=== PATIENT | male | born 1955 ===

== ENCOUNTER 2019-01-01 05:43 | Inpatient (IN) | payer OTHER ==
[2019-01-01] VITALS (14 sets, daily range): BP systolic 96–158; BP diastolic 57–102
[~2019-01-01] VITALS: Ht 172.7 cm; Wt 75.3 kg
[~2019-01-01 05:43] MED LIST: IBUPROFEN600 MG ORAL
[2019-01-01] MEDS ORDERED: LR 1000ml 1,000 ML IVLG SCH (06:34)
--- NOTE | 2019-01-01 06:35 | Anethesia Preoperative Eval ---
Anesthesia Pre-op PMH/ROS General Date of Evaluation: Jan 01, 2019 Time of Evaluation: 06:54 Anesthesiologist: Yesica ASA Score: ASA 2 Mallampati Score Class I : Soft palate, uvula, fauces, pillars visible Class II: Soft palate, uvula, fauces visible Class III: Soft palate, base of uvula visible Class IV: Only hard plate visible Mallampati Classification: Class II Surgeon: Adrian Diagnosis: Neck Pain Surgical Procedure: ACDF C4-5, C5-6, C6-7 Anesthesia History: none Family History: no anesthesia problems Allergies: Coded Allergies: No Known Allergies (Unverified , 01/01/19) Medications: see eMAR Patient NPO?: Yes Past Medical History Cardiovascular: Reports: HTN Anesthesia Pre-op Phys. Exam Physician Exam Last Vital Signs Date Time Temp Pulse Resp B/P (MAP) Pulse Ox O2 Delivery O2 Flow Rate FiO2 01/01/19 06:33 Room Air 01/01/19 06:16 97.5 56 18 140/93 (109) 100 Constitutional: NAD Neurologic: CN 2-12 intact Cardiovascular: RRR Respiratory: CTA Gastrointestinal: S/NT/ND Airway Exam Mallampati Score: Class II MO: full ROM: limited Teeth: missing, intact Anesthesia Pre-op A/P Risk Assessment & Plan Assessment: ASA 2 Plan: GA, SED, GlideScope Go Status Change Before Surgery: No Pre-Antibiotics Dru Grams Ancef IV Given Within 1 Hr of Incision: Yes Time Given: 07:21 Alber Robert MD Jan 01, 2019 06:35
[2019-01-01] MEDS ORDERED: Rocuronium Bromide 50mg/5ml Inj IV ONE (06:39)
[2019-01-01] MEDS ORDERED: oxyCODONE HCL/Acetaminophen 5/325mg ORAL PRN (06:45)
[2019-01-01] MEDS ORDERED: HYDROcodone/Acetamin 5/325 tab ORAL PRN ×2 (06:45→07:15)
[2019-01-01] MEDS ORDERED: Meperidine 50mg/ml Inj(FOR RIGORS ONLY) IVP PRN (06:45)
[2019-01-01] MEDS ORDERED: DiphenhydrAMINE 50mg/ml Inj IVP PRN (06:45)
[2019-01-01] MEDS ORDERED: fentaNYL 100 mcg/2 mL IV PRN (06:45)
[2019-01-01] MEDS ORDERED: Atropine Sulfate 0.4mg/ml inj IVP PRN (06:45)
[2019-01-01] MEDS ORDERED: Midazolam 2mg/2ml Inj IVP PRN (06:45)
[2019-01-01] MEDS ORDERED: Labetalol 5mg/ml 20ml vial IV PRN (06:45)
[2019-01-01] MEDS ORDERED: LORazepam Inj 2mg/ml 1ml IV PRN (06:45)
[2019-01-01] MEDS ORDERED: Hydromorphone 0.5mg/0.5ml inj IVP PRN (06:45)
[2019-01-01] MEDS ORDERED: Acetaminophen (Non formulary) 100 ML IV ONE (06:45)
[2019-01-01] MEDS ORDERED: Ketorolac 30mg Inj IV PRN ×2 (06:45)
[2019-01-01] MEDS ORDERED: HYDROcodone/Acetamin 7.5/325 tab ORAL PRN ×3 (06:45→07:15)
[2019-01-01] MEDS ORDERED: Metoclopramide 10mg/2ml Inj IVP PRN (06:45)
[2019-01-01] MEDS ORDERED: Lidocaine 1% Plain 30 ml INJ ONE ×2 (06:49→08:31)
[2019-01-01] MEDS ORDERED: Sodium Chloride 10ml vial INJ ONE (06:50)
[2019-01-01] MEDS ORDERED: Dexamethasone 4mg/ml vial ONE (06:50)
[2019-01-01] MEDS ORDERED: Lidocaine 1% MPF 10mg/ml 5ml ONE (06:50)
[2019-01-01] MEDS ORDERED: fentaNYL 100 mcg/2 mL IV ONE ×2 (06:51→08:19)
[2019-01-01] MEDS ORDERED: Thrombin 5000 units TOPIC ONE (06:55)
[2019-01-01] MEDS ORDERED: Bacitracin 50000 Units Vial ONE (06:56)
[2019-01-01] MEDS ORDERED: Gelfoam Size TOPIC ONE (06:56)
[2019-01-01] MEDS ORDERED: NS Irrig 1000ml ONE (06:59)
[2019-01-01] MEDS ORDERED: Sterile Water Irrig 1000ml IRRIG ONE (06:59)
[2019-01-01] MEDS ORDERED: ceFAZolin sod 2 GM in D5W 110 ML IVPB ONE (07:00)
[2019-01-01] MEDS ORDERED: Propofol 1,000mg/ 100ml btl IV ONE (07:00)
--- NOTE | 2019-01-01 07:07 | Pre-Procedure Note/Attestation ---
Pre-Procedure Note/Attestation Complete Prior to Procedure Planned Procedure: not applicable Procedure Narrative: Anterior cervical discectomy and fusion of cervical 45,56,67 Indications for Procedure Pre-Operative Diagnosis: Herniation of C45,56,67 Attestation I attest that I discussed the nature of the procedure; its benefits; risks and complications; and alternatives (and the risks and benefits of such alternatives ), prior to the procedure, with the patient (or the patient's legal technical services representative). I attest that, if there was a reasonable possibility of needing a blood transfusion, the patient (or the patient's legal technical services representative) was given the [facility] standardized written summary, pursuant to the [place] Blood Safety Act ([place] Health and Safety Code # 1645, as amended). I attest that I re-evaluated the patient just prior to the surgery and that there has been no change in the patient's H&P, except as documented below: Gene Campbell MD Jan 01, 2019 07:07
--- NOTE | 2019-01-01 07:09 | Brief Operative Note ---
Immediate Post Operative Note Operative Note Chief Complaint: neck pain and radiculopathy Pre-op Diagnosis: Herniation of C45,56,67 Procedure: Anterior cervical discectomy and fusion of cervical 45,56,67 Post-op Diagnosis: same as pre-op Findings: consistent w/pre-op dx studies Surgeon: Adrian Prime Broker: Shaniqua Anesthesiologist: Yesica Anesthesia: general Specimen: none Complications: none Condition: stable Fluids: IVF Estimated Blood Loss: minimal Drains: none Implant(s) used?: Yes - nuvasive interlock c sz6x3, screws 13mmx9 Gene Campbell MD Jan 01, 2019 07:09
[2019-01-01] MEDS ORDERED: Morphine Sulfate 4mg/ml Inj (IV USE ONLY) IV PRN ×2 (07:15)
[2019-01-01] MEDS ORDERED: HYDROmorphone 1mg/ml Carpuject IVP PRN (07:15)
[2019-01-01] MEDS ORDERED: Milk of Magnesia 30ml Ud ORAL PRN (07:15)
[2019-01-01] MEDS ORDERED: Morphine Sulfate 2mg/ml Inj(IV/IM USE ONLY) IV PRN (07:15)
[2019-01-01] MEDS ORDERED: Chloraseptic Spray 20mL Bottle ORAL PRN (07:15)
[2019-01-01] MEDS ORDERED: Naloxone 0.4mg/ml Inj IVP PRN (07:15)
--- NOTE | 2019-01-01 07:55 | Immediate Post-Op Evaluation ---
Immediate Post-Op Evalulation Immediate Post-Op Evalulation Procedure: ACDF C4-5, C5-6, C6-7 Date of Evaluation: Jan 01, 2019 Time of Evaluation: 11:12 IV Fluids: 900 LR Blood Products: 0 Estimated Blood Loss: 75 Urinary Output: 200 Blood Pressure Systolic: 144 Blood Pressure Diastolic: 91 Pulse Rate: 90 Respiratory Rate: 16 O2 Sat by Pulse Oximetry: 99 Temperature (Fahrenheit): 97.4 Pain Score (1-10): 2 Nausea: No Vomiting: No Complications 0 Patient Status: awake, reacts, patent, extubated, none Hydration Status: adequate Dru grams Ancef IV Given Within 1 Hr of Incision: Yes Time Given: 07:21 Alber Robert MD Jan 01, 2019 07:55
--- NOTE | 2019-01-01 08:51 | General Progress Note ---
Assessment/Plan Assessment/Plan: neck pain and radiculopathy Herniation of C45,56,67 Anterior cervical discectomy and fusion of cervical 45,56,67 PLAN 1. incentive spirometry 2.SCD 3. PT evaluation and therapy 4. Hydration 5. Pain management 6. discharge once stable with outpatient follow up Subjective Allergies: Coded Allergies: No Known Allergies (Unverified , 01/01/19) Subjective asked to follow up post op Objective Last 24 Hour Vital Signs Date Time Temp Pulse Resp B/P (MAP) Pulse Ox O2 Delivery O2 Flow Rate FiO2 01/01/19 06:33 Room Air 01/01/19 06:16 97.5 56 18 140/93 (109) 100 Height (Feet): 5 Height (Inches): 8.00 Weight (Pounds): 166 Alex Arndt MD Jan 01, 2019 08:51
[2019-01-01] MEDS ORDERED: Glycopyrrolate 0.2mg/ml 1ml Vial ONE (10:24)
--- NOTE | 2019-01-01 11:54 | Diagnostic Imaging Report ---
Indication: Intraoperative imaging COMPARISON: None FINDINGS: 5 fluoroscopic images were obtained intraoperatively. Fluoroscopic time 25.6 seconds Intraoperative images demonstrating localization of the cervical spine followed by multilevel anterior cervical discectomy and fusion at C4-5 C5-6 C6-7. IMPRESSION: Intraoperative imaging as described above
--- NOTE | 2019-01-01 12:50 | NUR ---
NURSE NOTES: Received report from NITA Jones. Patient drowsy, alert x2 to name and time. On nasal cannula 3L/min. No signs of distress or labored breathing. IV intact , patent, and infusing IV fluids from OR. Patient's son at the bedside. Belongings checked and accounted for, including android smartphone. Side rails up x2. Surgical site dry and intact, covered with dermabound.
--- NOTE | 2019-01-01 13:30 | NUR ---
NURSE NOTES: Gave prescription for home medications to patient's son, Rusty Schofield. Patient's son signed copy of prescription. Charge nurse aware.
[2019-01-01] MEDS: NS w/KCl 20mEq 1000ml 1,000 ML IV SCH ×2 (14:23→23:50)
[2019-01-01] MEDS: Dexamethasone 4mg/ml vial IVP SCH ×3 (14:23→23:52)
--- NOTE | 2019-01-01 16:27 | NUR ---
CASE MANAGEMENT: INITIAL REVIEW 63 YR OLD MALE HERE FOR ELECTIVE SURGERY SI: NECK PAIN AND RADICULOPATHY 97.5 56 18 140/93 100% ON RA IS: SURGERY TODAY FOR HERNIATION OF C 45, 56, 67 DCP: DISCHARGE HOME WHEN MEDICALLY CLEARED
[2019-01-01] MEDS: ceFAZolin sod 1 GM in D5W 55 ML IV SCH ×2 (16:45→23:50)
[2019-01-01] MEDS: Docusate 100mg cap ORAL SCH (18:57)
--- NOTE | 2019-01-01 19:30 | NUR ---
HAND-OFF: Report given to NITA Jimenez.
--- NOTE | 2019-01-01 20:00 | NUR ---
Nurse's notes: Received patient awake, alert and oriented; denies any pain, numbness or tingling on all extremities; VSS; care plan discussed with patient; will continue to monitor.
--- NOTE | 2019-01-01 22:00 | Operative Note - Dictated ---
DATE OF OPERATION: 01/01/2019 SURGEON: Gene Campbell M.D., Orthopaedic Spine Surgeon. MAINTENANCE AND REPAIR WORKER: Tommy Douglass M.D. PREOPERATIVE DIAGNOSES: 1. Intractable neck pain. 2. Radiculopathy. 3. Herniation, C4-C5, C5-C6, C6-C7. 4. Neural foraminal stenosis, C4-C5, C5-C6, C6-C7. 5. Stenosis. POSTOPERATIVE DIAGNOSES: 1. Intractable neck pain. 2. Radiculopathy. 3. Herniation, C4-C5, C5-C6, C6-C7. 4. Neural foraminal stenosis, C4-C5, C5-C6, C6-C7. 5. Stenosis. PROCEDURE PERFORMED: 1. Anterior cervical discectomy and fusion of C4-C5 using NuVasive Cervical Interlock Cage, size 6, a total of three screws of 13 mm length, with the insertion of 1 mL of Osteocel allograft bone. 2. Anterior cervical discectomy and fusion of C5-C6 using NuVasive Cervical Interlock Cage, size 6, a total of three screws of 13 mm length, with the insertion of 1 mL of Osteocel allograft bone. 3. Anterior cervical discectomy and fusion of C6-C7 using NuVasive Cervical Interlock Cage, size 6, a total of three screws of 13 mm length, with the insertion of 1 mL of Osteocel allograft bone. 4. Use of intraoperative microscope. 5. Motor-evoked potential monitoring. 6. Somatosensory-evoked potential monitoring. 7. Supervision and interpretation of fluoroscopy. COMPLICATIONS: None. ANESTHESIA: General. ESTIMATED BLOOD LOSS: Less than 100 mL. INDICATIONS FOR SURGERY: This patient is a 63-year-old male who has a history of intractable neck pain; radiculopathy; herniation, C4-C5, C5-C6, C6-C7; neural foraminal stenosis, C4-C5, C5-C6, C6-C7; and stenosis. We tried a course of conservative management, but despite this course, there was still a significant component of persistent, recalcitrant neck pain and arm pain. The MRI demonstrated significant neural foraminal compromise secondary to disc herniations at C4-C5, C5-C6, C6-C7. We had a long discussion with Errol regarding the risks and benefits of surgery. Our discussion included but was not limited to nonoperative management, chiropractic management, another epidural steroid injection as well as definitive management in the form of surgery. We recommended an anterior cervical discectomy and fusion of C4-C5, C5-C6, C6-C7 as final definitive management. We reviewed the risks and benefits of surgery with the patient. Our discussion included a comprehensive review of the clinical issues and the nature of the clinical decision. We reviewed the alternatives, including doing nothing. The patient elected to proceed accordingly with anterior cervical discectomy and fusion of C4-C5, C5-C6, C6-C7. We had a long discussion regarding the risks, alternatives, and benefits of surgery. Our description of the risks included a discussion in person as well as a signed consent which detailed all pertinent risks from the procedure itself. Briefly, our discussion included but was not limited to infection, bleeding, pseudarthrosis, spinal cord injury, neurovascular injury, dural tear, CSF leak, neuropathy, paralysis, permanent weakness/drop foot/drop arm, paresthesias, blindness, palsy, and weakness. The patient understood there may be a need for a revision surgery or additional procedures. Approach-related complications including dysphonia, dysphagia, blindness, permanent vocal cord and neural injury, hematoma, swallowing and breathing difficulty. Medical complications were reviewed including liver, kidney, shock, cardiopulmonary failure, anesthesia complications including , swelling, damage to the musculature, larynx/voice injury or loss, esophagus/throat, trachea, blood vessels and muscles/muscular sprain and lungs/pneumothorax during this surgical procedure; injury to deeper structures may be temporary or permanent. After this review of risks, the patient understood these and elected to proceed. A written and verbal consent was given. We discussed the pros and cons of all the alternatives. We discussed the uncertainties associated with the decision. Afterwards, I assessed the patient's understanding and explored their preferences. All questions were answered and no guarantees were given. Medical clearance was obtained prior to surgery. INTRAOPERATIVE FINDINGS: C4-C5; at C4-C5, I encountered a collapsed disc height. There was no anterior bone spur appreciated anatomically. The disc itself was spongy and not desiccated or calcified. Upon removal of the disc and inspection of the posterior longitudinal ligament, I noticed a vertical tear in the PLL, which was right-sided. Through this tear when probed, I noted herniated fragment, which was sitting posterior to the ligament and compressing the thecal sac and spinal cord. This fragment was large and causing severe foraminal stenosis on the right side. C5-C6; at C5-C6, I noticed the disc with slight amount of collapse. The disc itself was spongy and soft. There was an anterior bone spur on the inferior endplate of C5. Upon removal of the disc, near the margin of the posterior longitudinal ligament on the right-hand side, I noticed a tear in the posterior longitudinal ligament approximately 10 degrees cephalad to caudad, which was right-sided. I probed this tear with a Microsect curette size 1-B and found the extrusion of a herniated nucleus pulposus which was right-sided predominantly. It was large and causing neural foraminal stenosis and compression on the thecal sac. This was decompressed with a combination of Kerrison 1 and Kerrison 2 rongeurs. C6-C7; the disc at C6-C7 was appropriate in height. There was no anterior bone spur noted. There was a soft quality to the disc itself in regards to its consistency. It was not desiccated or calcified. I noted a posterior longitudinal ligament tear, which was more midline near the junction of the right side. This tear was approximately 10 degrees cephalad to caudad. This was probed with Microsect 1-B and 2-B curettes. Posterior to this tear, I noted a fragment of the herniated nucleus pulposus. This had migrated posteriorly and demonstrated that there was some encroachment on the neural foramina, right-sided more than left-sided, and thecal sac and spinal cord. DESCRIPTION OF PROCEDURE: Under the benefit of general endotracheal anesthesia and with the assistance of the entire operative team, the patient was moved from the [facility] onto the operative table in the supine position. The head was secured and carefully positioned appropriately. Bilateral arms were secured with Gel Pads and foam and all bony prominences were padded. For the bilateral lower extremities, SCD and CYNTHIA hose were placed for DVT prophylaxis. A surgical timeout was called which corroborated our planned procedure of anterior cervical discectomy and fusion of C4-C5, C5-C6, C6-C7. Preoperative antibiotics were administered within 30 minutes of the incision for antibiotic prophylaxis. Using lateral fluoroscopic radiography, the operative levels were delineated. Next, the wound was prepped and draped with chlorhexidine and sterile drapes. An incision was based on lateral fluoroscopy and we centered our incision at the C4-C5, C5-C6, C6-C7 interspace and next using a standard [place]ning[place]-Dias anterior-based approach, the incision was taken down through the skin and subcutaneous tissues until the vertebral bodies and their corresponding disc spaces were visualized. A needle was placed into the interspace to confirm placement of the operative interspace and we performed the remainder of the procedure under microscopic visualization. Next, using bipolar and Bovie cautery to ensure meticulous hemostasis, the longus colli was mobilized bilaterally and retractors were placed deep to the longus colli bilaterally to address retraction. Next, we turned our attention to the radical anterior discectomy. This was initially performed at C4-C5 first by using a 15 blade scalpel followed by narrow pituitaries and a Microsect 5-B curette was used to denude the endplate of all cartilaginous tissue. Next, using a [employer] AM8 drill bit, the cartillage off the vertebral bodies was resected in a cell-by -cell and ekawd-yr-blbit fashion, and ultimately the posterior uncinate joints bilaterally and posterior osteophytic lips and margins causing central and lateral impingement were carefully denuded until visualization of the posterior longitudinal ligament was possible. An endplate preparation was performed in the exact same fashion using an intervertebral front end web designer, sequential distraction was obtained throughout the disc space. Here at C4-C5, I encountered a collapsed disc height. There was no anterior bone spur appreciated anatomically. The disc itself was spongy and not desiccated or calcified. Upon removal of the disc and inspection of the posterior longitudinal ligament, I noticed a vertical tear in the PLL, which was right-sided. Through this tear when probed, I noted herniated fragment, which was sitting posterior to the ligament and compressing the thecal sac and spinal cord. This fragment was large and causing severe foraminal stenosis on the right side. This neural foraminal compression was carefully resected using a Kerrison-1 and Kerrison-2 rongeurs until complete decompression of the spinal cord was visualized and complete decompression of the neural foramina and nerve root therein as well as the axilla and lateral margin of the nerve root was visualized and subsequently completely decompressed. The family was notified at one-hour intervals throughout the procedure to provide for consistent updates. Next, we turned our attention to the radical anterior discectomy at the C5-C6 level first by using a 15 blade scalpel followed by narrow pituitaries and a Microsect 5-B curette was used to denude the endplate of all cartilaginous tissue. Next, using a [employer] AM8 drill bit, the cartillage off the vertebral bodies was resected in a in a tifr-tp-abam and wqzoj-pc-htvas fashion, and ultimately the posterior uncinate joints bilaterally and posterior osteophytic lips and margins causing central and lateral impingement were carefully denuded until visualization of the posterior longitudinal ligament was possible. An endplate preparation was performed in the exact same fashion using an intervertebral front end web designer, sequential distraction was obtained throughout the disc space. Now here at C5-C6, I noticed the disc with slight amount of collapse. The disc itself was spongy and soft. There was an anterior bone spur on the inferior endplate of C5. Upon removal of the disc, near the margin of the posterior longitudinal ligament on the right-hand side, I noticed a tear in the posterior longitudinal ligament approximately 10 degrees cephalad to caudad, which was right-sided. I probed this tear with a Microsect curette size 1-B and found the extrusion of a herniated nucleus pulposus which was right-sided predominantly. It was large and causing neural foraminal stenosis and compression on the thecal sac. This was decompressed with a combination of Kerrison 1 and Kerrison 2 rongeurs. This neural foraminal compression was carefully resected using a Kerrison-1 and Kerrison-2 rongeurs until complete decompression of the spinal cord was visualized and complete decompression of the neural foramina and nerve root therein as well as the axilla and lateral margin of the nerve root was visualized and subsequently completely decompressed. Next, we turned our attention to the radical anterior discectomy at the C6-C7 level first by using a 15 blade scalpel followed by narrow pituitaries and a Microsect 5-B curette was used to denude the endplate of all cartilaginous tissue. Next, using a [employer] AM8 drill bit, the cartillage off the vertebral bodies was resected in a in a isci-qk-blxd and vzxwc-oq-vbvhl fashion, and ultimately the posterior uncinate joints bilaterally and posterior osteophytic lips and margins causing central and lateral impingement were carefully denuded until visualization of the posterior longitudinal ligament was possible. An endplate preparation was performed in the exact same fashion using an intervertebral front end web designer, sequential distraction was obtained throughout the disc space. In regards to the disc at C6-C7 I felt it was appropriate in height. There was no anterior bone spur noted. There was a soft quality to the disc itself in regards to its consistency. It was not desiccated or calcified. I noted a posterior longitudinal ligament tear, which was more midline near the junction of the right side. This tear was approximately 10 degrees cephalad to caudad. This was probed with Microsect 1-B and 2-B curettes. Posterior to this tear, I noted a fragment of the herniated nucleus pulposus. This had migrated posteriorly and demonstrated that there was some encroachment on the neural foramina, right-sided more than left-sided, and thecal sac and spinal cord. This neural foraminal compression was carefully resected using a Kerrison-1 and Kerrison-2 rongeurs until complete decompression of the spinal cord was visualized and complete decompression of the neural foramina and nerve root therein as well as the axilla and lateral margin of the nerve root was visualized and subsequently completely decompressed. We next turned our attention towards trialing our implant within each space, starting with the disc space at C4-C5. We initially tried size 5 and afterwards size 6 trial from the NuVasive system at each level, which appeared to be appropriate under AP and lateral fluoroscopy as well as in terms of its height, depth, width, and lack of toggle. The PEEK (polyetheretherketone) interbody cages were then both packed with 1 mL of allograft bone from Osteocel and local autograft bone matrix. Next, these were then carefully advanced and secured into their intervertebral spaces under direct visualization and with supervision of AP and lateral fluoroscopic views. This was then performed at the next level, C5-C6. We initially tried size 5 and afterwards size 6 trial from the NuVasive system at each level, which appeared to be appropriate under AP and lateral fluoroscopy as well as in terms of its height, depth, width, and lack of toggle. The PEEK interbody cages were then both packed with 1 mL of allograft bone from Osteocel and local autograft bone matrix. Next, these were then carefully advanced and secured into their intervertebral spaces under direct visualization and with supervision of AP and lateral fluoroscopic views. This was then performed at the next level, C6-C7. We initially tried size 5 and afterwards size 6 trial from the NuVasive system at each level, which appeared to be appropriate under AP and lateral fluoroscopy as well as in terms of its height, depth, width, and lack of toggle. The PEEK interbody cages were then both packed with 1 mL of allograft bone from Osteocel and local autograft bone matrix. Next, these were then carefully advanced and secured into their intervertebral spaces under direct visualization and with supervision of AP and lateral fluoroscopic views. We next turned our attention towards plating at C4-C5. Plating was performed with the NuVasive Interlock-C plating system. A total of 3 screws, size 13 mm in length were inserted and confirmed under AP and lateral fluoroscopy and confirmed to be in excellent position. This was then performed at the next level, C5-C6. Plating was performed with the NuVasive Interlock-C plating system. A total of 3 screws, size 13 mm in length were inserted and confirmed under AP and lateral fluoroscopy and confirmed to be in excellent position. This was then performed at the next level, C6-C7. Plating was performed with the NuVasive Interlock-C plating system. A total of 3 screws, size 13 mm in length were inserted and confirmed under AP and lateral fluoroscopy and confirmed to be in excellent position. After a finger sweep, we confirmed removal of all sponges. The retractor was removed and we next turned our attention to meticulous hemostasis with FloSeal and bipolar cautery. After the sponge and needle count was again found to be correct with our second count, we next turned our attention to closure. The wound was again copiously irrigated with antibiotic-impregnated saline. Closure consisted of 4-0 clear nylon for the platysma, and 6-0 clear nylon for the superficial skin. Final skin closure and dressings consisted of Dermabond. Prior to final closure, a final radiograph was obtained which demonstrated the hardware was intact with excellent position throughout. The patient tolerated the procedure well. The patient was carefully extubated after the conclusion of surgery. We discussed the findings of the surgery with the family upon completion of the case. At this point, the patient was transferred to the spine floor for further observation. Gene Campbell M.D. DR: Ariana JOB#: [id number] CC: AVE
[2019-01-02] VITALS: BP 106/60
--- NOTE | 2019-01-02 01:51 | NUR ---
Nurse's notes: education given on safe medication administration; informed patient not to take any of his filled pain/muscle relaxant prescriptions; Errol verbalized understanding.
[2019-01-02 04:00] VITALS: BP 100/62
[2019-01-02] MEDS: Dexamethasone 4mg/ml vial IVP SCH (05:21)
--- NOTE | 2019-01-02 06:11 | NUR ---
nurse's notes: no incidents of falls, injuries or trauma reported as of this time; pain managed well with ordered PRN medications with good results; POD#1 for ACDF of the c-spine; surgical incision site at the base of the neck continues to be clean and dry; so s/s of infection; gets up to the bathroom with very minimal assist; voiding well; however, no BM this shift; reiterated education given regarding safe medication administration; patient verbalized understanding; tolerating diet; denies any other distress; plan of care continued until all set goals are met by day of discharge.
--- NOTE | 2019-01-02 06:29 | NUR ---
nurse's notes: denies any numbness and tingling on all extremities
[2019-01-02 08:00] VITALS: BP 125/70
[2019-01-02] MEDS: Docusate 100mg cap ORAL SCH (08:58)
[2019-01-02] MEDS: ceFAZolin sod 1 GM in D5W 55 ML IV SCH (08:59)
--- NOTE | 2019-01-02 09:58 | General Progress Note ---
Assessment/Plan Problem List: (1) HNP (herniated nucleus pulposus), cervical ICD Codes: M50.20 - Other cervical disc displacement, unspecified cervical region SNOMED: [id number], [id number] Status: stable Assessment/Plan: stable post cont current rx Subjective ROS Limited/Unobtainable: No Constitutional: Reports: no symptoms HEENT: Reports: no symptoms Cardiovascular: Reports: no symptoms Respiratory: Reports: no symptoms Gastrointestinal/Abdominal: Reports: no symptoms Genitourinary: Reports: no symptoms Neurologic/Psychiatric: Reports: no symptoms Endocrine: Reports: no symptoms Hematologic/Lymphatic: Reports: no symptoms Allergies: Coded Allergies: No Known Allergies (Unverified , 01/01/19) All Systems: reviewed and negative except above Subjective s/p acdf. no complaints. tolerating po. no dysphagia. no weakness or numbness. Objective Last 24 Hour Vital Signs Date Time Temp Pulse Resp B/P (MAP) Pulse Ox O2 Delivery O2 Flow Rate FiO2 01/02/19 04:00 97.9 83 18 100/62 (75) 93 01/02/19 00:00 98.4 89 18 106/60 (75) 94 01/01/19 21:00 Nasal Cannula 3.0 01/01/19 20:00 98.4 89 18 96/57 (70) 94 01/01/19 16:00 98.0 92 16 108/74 (85) 96 01/01/19 13:15 97.6 83 18 123/75 (91) 100 01/01/19 12:50 Nasal Cannula 3.0 01/01/19 12:45 98.4 82 12 124/76 (92) 98 01/01/19 12:20 98.0 83 19 120/78 99 Nasal Cannula 3 01/01/19 12:10 82 16 117/78 98 Nasal Cannula 3 01/01/19 12:09 98.0 01/01/19 11:55 88 15 121/77 98 Nasal Cannula 3 01/01/19 11:40 90 14 153/87 97 Nasal Cannula 3 01/01/19 11:30 91 15 158/85 98 Simple Mask 6 01/01/19 11:20 88 18 147/84 96 Simple Mask 6 01/01/19 11:10 73 15 133/79 99 Simple Mask 6 01/01/19 11:05 86 19 145/102 99 Simple Mask 6 01/01/19 11:01 97.4 89 22 144/91 99 Simple Mask 6 01/01/19 11:00 90 16 99 Intake and Output 01/01/19 01/02/19 18:59 06:59 Intake Total 1000 ml 1655 ml Output Total 1025 ml Balance -25 ml 1655 ml Intake Oral 500 ml IV Total 1000 ml 1155 ml Output Urine Total 1025 ml # Voids 7 # Bowel Movements 1 Height (Feet): 5 Height (Inches): 8.00 Weight (Pounds): 166 General Appearance: WD/WN, alert Neck: supple - incision clean Respiratory/Chest: normal breath sounds Abdomen: normal bowel sounds, non tender, soft Edema: no edema noted Arm (L), no edema noted Arm (R), no edema noted Leg (L), no edema noted Leg (R), no edema noted Pedal (L), no edema noted Pedal (R), no edema noted Generalized Wally Ledesma MD Jan 02, 2019 09:58
[2019-01-02] MEDS: NS w/KCl 20mEq 1000ml 1,000 ML IV SCH (10:00)
--- NOTE | 2019-01-02 11:31 | NUR ---
NURSE NOTES: Pt ambulated with physical therapy. Dr Trammell here to see pt , informed him that pt incision to throat is slightly swollen. stated that the swelling is expected. [place] and throat lozenges given for mild pain . Pt verbalized he feels a sensation of aching when swallowing. Verbalized increased level of comfort after Cepecol was given.
[2019-01-02 12:00] VITALS: BP 127/71
[2019-01-02] MEDS ORDERED: NORCO 10-325 T1 EACH ORAL (14:49)
[2019-01-02] MEDS ORDERED: CARISOPRODOL350 MG ORAL (14:50)
--- NOTE | 2019-01-02 14:51 | NUR ---
PT Note PT kelly completed, treatment initiated. Patient was instructed on HEP's, cervical spine precautions and in ascending/descending steps. Patient was able to verbalize and demonstrate understanding of all instructions. Addendum: 01/02/19 at 1452 by YANICK CABAN PT Amended: Links added.
--- NOTE | 2019-01-02 15:15 | NUR ---
NURSE NOTES: Spoke to to clarify discharge date and ok to discharge today. Order read back and carried out.
--- NOTE | 2019-01-02 16:00 | NUR ---
NURSE NOTES: Pt discharge son came to pick him up. Discharge packet and instructions related to s/s of infection and side effects pain medication explained. Encouraged to drink prune juice to prevent constipation. Belongings given IV removed. Pt denied pain on discharge.
--- NOTE | 2019-01-02 16:00 | Discharge Summary ---
DATE OF ADMISSION: 01/01/2019 DATE OF DISCHARGE: 01/02/2019 PROCEDURE PERFORMED DURING ADMISSION: Anterior cervical discectomy and fusion of C4-C5, C5-C6, C6-C7. REASON FOR ADMISSION: Herniation of C4-C5, C5-C6, C6-C7. HOSPITAL COURSE/TREATMENT RENDERED: DISCHARGE PHYSICAL EXAMINATION: 1. The patient was ambulating with and without the assistance of physical therapy. 2. Prior to discharge home, incision was clean and dry with minimal swelling. 3. Follows commands. 4. Alert and oriented. 5. [place] discontinued, voiding. 6. Incentive spirometer at bedside. 7. IVF hep locked. MOTOR: Demonstrates expected postoperative bulk and tone. Moves biceps, triceps, and deltoid musculature on command. Moves hip flexors, quadriceps, tibialis anterior, EHL, gastrocsoleus musculature on command as well. TREATMENT RENDERED: 1. Daily nursing care. 2. Physical Therapy. 3. Occupational Therapy. 4. Intravenous medications. 5. Oral medications. 6. Daily postoperative examinations by Spine surgery team. CONDITION OF PATIENT ON DISCHARGE: The condition on discharge is stable for discharge to home. DISCHARGE INSTRUCTIONS: Our specific instructions relating to physical activity, medications, diet, and followup care are detailed in our standard operative folder and were given to this patient prior to surgery. We will however summarize these briefly as stated below. Regarding physical activity, we would like the patient to limit their flexion, extension, and rotation. We also require a limitation on their bending, lifting, and twisting. All medication has been called in prior to surgery to their pharmacy of choice. They can resume their regular diet once tolerated. We would like them to shower and limit soaking the wound in a tub/Jacuzzi/the ocean for a period of one month or until the incision is completely healed. We will have them follow up in our office in three weeks' time for their regularly scheduled appointment. They understand to call our office tomorrow to schedule the time for their three-week followup appointment. The patient will notify us should they experience any increase in the severity of pain, redness/swelling/ or drainage from their incision. Gene Campbell M.D. DR: GRACE JOB#: [id number] CC:
[2019-01-02] MEDS ORDERED: Tubing IV Secondary IV ONE (16:39)
--- NOTE | 2019-01-03 12:42 | 48 Hour Post Anesthesia Eval ---
Post Anesthesia Evaluation Procedure: ACDF C4-5, C5-6, C6-7 Date of Evaluation: Jan 03, 2019 Nausea: No Vomiting: No Bakari Crocker MD Jan 03, 2019 12:42
== END 2019-01-02 16:50 | disposition home or self-care (01) | DRG 473 ==
LOC: SDSOVERFLO 05:43 → 3E 12:30
PROC: 4A11X4G Monitoring of Peripheral Nervous Electrical Activity, Intraoperative, External Approach (ICD-10-PCS; principal; 2019-01-01 07:00)
PROC: 0RG20A0 Fusion of 2 or more Cervical Vertebral Joints with Interbody Fusion Device, Anterior Approach, Anterior Column, Open Approach (ICD-10-PCS; principal; 2019-01-01 07:00)
PROC: 0RT30ZZ Resection of Cervical Vertebral Disc, Open Approach (ICD-10-PCS; principal; 2019-01-01 07:00)
DX: M50.121 Cervical disc disorder at C4-C5 level with radiculopathy (principal); E66.3 Overweight; M48.02 Spinal stenosis, cervical region
CPT/HCPCS: 36415; 72040; 76000; 86850; 86900; 86901; 87081; 94003; 94150; J2405